=== PATIENT | male | born 1945 | race Caucasian/White ===

== ENCOUNTER → 2020-03-20 | Outpatient (CLI) | payer OTHER ==
[~2020-03-20] MED LIST: HYDR-3245 PO; METH750T87 PO; TRAZ-175 PO; Viagra PO
== END | disposition home or self-care (01) ==
LOC: STAR 13:35
PROVIDERS: ATTEND Neurological Surgery
DX: Z01.812 Encounter for preprocedural laboratory examination (principal); Z20.828 Contact with and (suspected) exposure to other viral communicable diseases; M48.061 Spinal stenosis, lumbar region without neurogenic claudication
CPT/HCPCS: 36415; 87635